=== PATIENT | female | born 1995 ===

== ENCOUNTER 2016-09-30 11:36 | Emergency (ER) | payer BC ==
--- NOTE | 2016-09-30 12:58 | RAD ---
INDICATION: Intracranial injury COMPARISON: None TECHNIQUE: Noncontrast axial source images were acquired from the skull base to the vertex. FINDINGS: Ventricles/sulci: The ventricles and cisterns are normal in size and configuration for age. Brain parenchyma: There is no focal parenchymal finding, evidence of intracranial mass, or intracranial mass effect. Intracranial hemorrhage:None. Extra-axial spaces: There are no abnormal extra axial fluid collections or evidence of extra-axial mass. Calvarium: There is no calvarial fracture or other calvarial abnormality. Scalp: There is no evidence of scalp or extracalvarial soft tissue abnormality. Paranasal sinuses/mastoid: The paranasal sinuses and mastoid air cells are clear. Other: None. IMPRESSION: NEGATIVE EXAMINATION
--- NOTE | 2016-09-30 13:09 | ED ---
Head Injury - HPI Summary HPI Summary: 20F presents with head injury a week ago. She was on her skateboard and fell off and hit her head. She denies any LOC. She denies any vomiting. She does admits to intermittent nausea and moderate headache. She has been taking ibuprofen for her headache. [facility] couple days ago and advised to go the ED for head CT. She admits to increased fatigue but denies any change in vision or lightheadedness. - History Of Current Complaint Chief Complaint: EDHeadInjury Stated Complaint: FALL HIT HEAD /1WK AGO Time Seen by Provider: 09/30/16 12:13 Pain Intensity: 6 - Allergies/Home Medications Allergies/Adverse Reactions: Allergies Allergy/AdvReac Type Severity Reaction Status Date / Time No Known Allergies Allergy Verified 02/13/13 12:26 PMH/Surg Hx/FS Hx/Imm Hx Endocrine/Hematology History: Denies: Hx Anticoagulant Therapy Cardiovascular History: Denies: Hx Hypertension Infectious Disease History: No Infectious Disease History: Denies: Traveled Outside the [place] in Last 30 Days - Family History Known Family History: Negative: Cardiac Disease - Social History Alcohol Use: Occasionally Substance Use Type: Reports: None Smoking Status (MU): Never Smoked Tobacco Review of Systems Negative: Fever Negative: Chest Pain Negative: Shortness Of Breath Positive: Nausea. Negative: Vomiting Positive: Headache All Other Systems Reviewed And Are Negative: Yes Physical Exam Triage Information Reviewed: Yes Vital Signs On Initial Exam: Initial Vitals Temp Pulse Resp BP Pulse Ox 98 F 66 17 101/64 98 09/30/16 11:43 09/30/16 11:43 09/30/16 11:43 09/30/16 11:43 09/30/16 11:43 Vital Signs Reviewed: Yes Appearance: Positive: Well-Appearing Skin: Positive: Warm, Dry Head/Face: Positive: Normal Head/Face Inspection Eyes: Positive: Normal, EOMI, SINAN, Conjunctiva Clear ENT: Positive: Normal ENT inspection, Pharynx normal, TMs normal Respiratory/Lung Sounds: Positive: Clear to Auscultation, Breath Sounds Present Cardiovascular: Positive: Normal, RRR Neurological: Positive: Sensory/Motor Intact, Alert, Oriented to Person Place, Time, CN Intact II-III - Radha Coma Scale Best Eye Response: 4 - Spontaneous Best Motor Response: 6 - Obeys Commands Best Verbal Response: 5 - Oriented Diagnostics - Vital Signs Vital Signs Temp Pulse Resp BP Pulse Ox 09/30/16 12:03 98 F 66 16 101/64 99 09/30/16 11:43 98 F 66 17 101/64 98 - Laboratory Lab Statement: Any lab studies that have been ordered have been reviewed, and results considered in the medical decision making process. - CT head CT Interpretation: No Acute Changes CT Interpretation Completed By: Radiologist Head Injury Course/Dx Course Of Treatment: 20F presents with head injury a week ago. She was on her skateboard and fell off and hit her head. She denies any LOC. She denies any vomiting. She does admits to intermittent nausea and moderate headache. She has been taking ibuprofen for her headache. She was [facility] a couple days ago and advised to go the ED for head CT. She admits to increased fatigue but denies any change in vision or lightheadedness. normal neuro exam. Head CT normal. gave zofran and told to follow up with primary. patient understands and agrees with plan - Diagnoses Differential Diagnosis/HQI/PQRI: Cerebral Contusion, Concussion Without LOC, Intracranial Bleed Provider Diagnoses: Head injury Discharge - Discharge Plan Condition: Good Disposition: HOME Prescriptions: Ondansetron ODT TAB* [Zofran 4 MG Odt TAB*] 4 mg PO Q6H PRN #12 tab.odt PRN Reason: Nausea Patient Education Materials: Head Injury (ED) Referrals: [facility] [Primary Care Provider] - [facility] [Outside] Additional Instructions: Take Tylenol or ibuprofen for headache every 6 hours Take zofran every 6 hours for nausea Modify activities as tolerated Establish care with primary to follow up Return to ED if develop vomiting, severe headache, or any new or worsening symptoms
[2016-09-30 13:27] VITALS: BP 136/63
== END 2016-09-30 13:25 | disposition home or self-care (01) ==
LOC: ED 11:36
DX: S09.90XA Unspecified injury of head, initial encounter (principal); R11.0 Nausea; R51 Headache; V00.131A Fall from skateboard, initial encounter; Y93.I9 Activity, other involving external motion; Y92.89 Other specified places as the place of occurrence of the external cause; Y99.9 Unspecified external cause status
CPT/HCPCS: 70450; 99282

== ENCOUNTER 2017-04-30 11:29 | Emergency (ER) | payer BC ==
[2017-04-30 13:48] VITALS: BP 98/59
--- NOTE | 2017-04-30 14:12 | UC ---
FLU HPI - HPI Summary HPI Summary: Pt presents with fatigue, cough, nausea, and headache for the last 4 days. She was reading online and thinks her symptoms are consistent with pneumonia. She has been taking mucinex with mild relief. Denies fever, chills, SOB, chest pain , abdominal pain, vomiting, or diarrhea. - History of Current Complaint Chief Complaint: UCRespiratory Stated Complaint: CONGESTED,COUGH Time Seen by Provider: 04/30/17 14:12 Hx Obtained From: Patient Severity Currently: Moderate Severity Initially: Moderate Pain Intensity: 6 Pain Scale Used: 0-10 Numeric - Allergy/Home Medications Allergies/Adverse Reactions: Allergies Allergy/AdvReac Type Severity Reaction Status Date / Time No Known Allergies Allergy Verified 04/30/17 13:48 Home Medications: Home Medications Fluoxetine HCl [Prozac] 20 mg PO 04/30/17 [History] Methylphenidate HCl [Ritalin] 5 mg PO 04/30/17 [History] PMH/Surg Hx/FS Hx/Imm Hx Previously Healthy: Yes Psychological History: Other Other Psychological History: ADHD Other History Of: Negative For: Anticoagulant Therapy - Surgical History Surgical History: Yes Surgery Procedure, Year, and Place: wisdom teeth extraction - Family History Known Family History: Negative: Cardiac Disease - Social History Occupation: Employed Full-time Lives: With Family Alcohol Use: Weekly Substance Use Type: None Smoking Status (MU): Never Smoked Tobacco Review of Systems Constitutional: Fatigue Skin: Negative Eyes: Negative ENT: Negative Respiratory: Cough Cardiovascular: Negative Gastrointestinal: Nausea Genitourinary: Negative Motor: Negative Neurovascular: Negative Neurological: Headache Psychological: Negative All Other Systems Reviewed And Are Negative: Yes Physical Exam Triage Information Reviewed: Yes Appearance: Well-Appearing, No Pain Distress, Well-Nourished Vital Signs: Initial Vital Signs Temp 97.4 F 04/30/17 13:44 Pulse 72 04/30/17 13:44 Resp 18 04/30/17 13:44 BP 98/59 04/30/17 13:44 Pulse Ox 100 04/30/17 13:44 Vital Signs Reviewed: Yes Eyes: Positive: Conjunctiva Clear. Negative: Conjunctiva Inflamed, Discharge ENT: Positive: Hearing grossly normal, Pharynx normal, TMs normal, Uvula midline. Negative: Pharyngeal erythema, Nasal congestion, Nasal drainage, TM bulging, TM dull, TM red, Tonsillar swelling, Tonsillar exudate, Hoarse voice, Sinus tenderness Neck: Positive: Supple, Nontender, No Lymphadenopathy Respiratory: Positive: Chest non-tender, Lungs clear, Normal breath sounds, No respiratory distress, No accessory muscle use Cardiovascular: Positive: RRR, No Murmur, Pulses Normal Abdomen Description: Positive: Nontender, No Organomegaly, Soft. Negative: CVA Tenderness (R), CVA Tenderness (L), Distended, Guarding Bowel Sounds: Positive: Present Neurological: Positive: Alert. Negative: Fatigued Psychological: Positive: Age Appropriate Behavior Skin: Negative: rashes Flu Course/Dx - Course Course Of Treatment: CXR: IMPRESSION: NORMAL CHEST. Flu swab positive flu A - Differential Dx/Diagnosis Provider Diagnoses: Influenza A Discharge - Discharge Plan Condition: Stable Disposition: HOME Prescriptions: Oseltamivir CAP* [Tamiflu CAP*] 75 mg PO BID #10 cap Patient Education Materials: Influenza (DC) Referrals: [facility] [Primary Care Provider] - Additional Instructions: If you develop a fever, shortness of breath, chest pain, new or worsening symptoms - please call your PCP or go to the ED.
--- NOTE | 2017-04-30 14:45 | RAD ---
INDICATION: Cough COMPARISON: None TECHNIQUE: PA and lateral dual-energy views were obtained. FINDINGS: Bones/Soft Tissues: There are no acute bony findings. Cardiomediastinal: The cardiomediastinal silhouette is normal. Lungs: There are no infiltrates. Pleura: There are no pleural effusions. Other: None IMPRESSION: NORMAL CHEST.
== END 2017-04-30 14:55 | disposition home or self-care (01) ==
LOC: UCEAST 11:29
DX: J09.X2 Influenza due to identified novel influenza A virus with other respiratory manifestations (principal); F90.9 Attention-deficit hyperactivity disorder, unspecified type
CPT/HCPCS: 71046; 87502; 99212; G0463